=== PATIENT | female | born 1980 | race Caucasian/White ===

== ENCOUNTER → 2018-04-15 | Outpatient (CLI) | payer OTHER ==
[~2018-04-15] MED LIST: BACTRIM 400 MG-1 TAB PO; BENADRYL25 M1 PO; CELEXA 20MG20 MG/TAB PO; CITALOPRAM40 MG PO; NAPROXEN 3375 MG/TAB PO; PRILOSEC 20MG20 MG PO; ZANTAC 150MG T150 MG PO; ZYRTEC5 MG PO
== END ==
LOC: MC.RAD 12:58
DX: N63.20 Unspecified lump in the left breast, unspecified quadrant (principal)
CPT/HCPCS: G0279

== ENCOUNTER 2018-04-22 14:28 | Emergency (ER) | payer SELFPAY ==
[~2018-04-22] VITALS: Ht 154.9 cm; Wt 78.2 kg
[2018-04-22 14:36] VITALS: TEMP 97
[2018-04-22 14:43] LABS: COLLECTION METHOD CLEAN CATCH
[2018-04-22 14:56] LABS: MUCOUS Present /lpf; PH 5 (5-8); SQUAMOUS EPITHELIAL 0-2 /hpf; URINE APPEARANCE Clear; URINE BACTERIA Rare /hpf; URINE BILIRUBIN Negative (NEGATIVE); URINE BLOOD 1+ (NEGATIVE); URINE COLOR Straw; URINE GLUCOSE Negative (NEGATIVE); URINE KETONE Negative (NEGATIVE); URINE LEUKOCYTE ESTERASE Negative (NEGATIVE); URINE NITRATE Negative (NEGATIVE); URINE PROTEIN(semi-quant) Negative (NEGATIVE); URINE RBC 0-2 /hpf; URINE UROBILINOGEN Negative (NEGATIVE)
[2018-04-22 14:59] LABS: BASO % 0.7 % (0.0-2.0); EOS # 0.1 (0.0-0.7); EOS % 2.5 % (0-4.0); GRAN # 2.7 (1.4-6.5); GRAN % 61.6 % (42.2-75.2); HEMATOCRIT 40.5 % (37.0-47.0); HEMOGLOBIN 13.7 g/dl (12.5-16.0); LYMPH # 1.2 (1.2-3.4); LYMPH % 26.9 % (20.0-51.0); MEAN CELL VOLUME 88 fl (80.0-100.0); MEAN CORPUSCULAR HEMOGLOBIN 30 pg (27.0-31.0); MEAN CORPUSCULAR HGB CONC 34 g/dl (33.0-37.0); MEAN PLATELET VOLUME 9.9 fl (7.4-10.4); MONO # 0.4 (0.1-0.6); MONO % 8.1 % (1.7-9.3); PLATELET COUNT 276 K/mm3 (130-400); RED BLOOD COUNT 4.63 M/mm3 (4.10-5.30); REDCELL DISTRIBUTION WIDTH-CV 13.2 % (11.5-14.5)
[2018-04-22 15:06] LABS: ALANINE AMINOTRANSFERASE 45 U/L (9-52); ALBUMIN 4.2 gm/dL (3.5-5.0); ALKALINE PHOSPHATASE 76 U/L (50-136); ANION GAP 11 mmol/L (7-16); AST,SGOT 37 U/L (15-37); BILIRUBIN,TOTAL 0.4 mg/dL (0.0-1.0); BLOOD UREA NITROGEN 8 mg/dL (7-17); CALCIUM 9.3 mg/dL (8.4-10.2); CARBON DIOXIDE 24 mmol/L (22-30); CHLORIDE 101 mmol/L (98-107); CREATININE, serum 0.75 mg/dL (0.52-1.25); GLUCOSE 112 mg/dL (74-106); POTASSIUM 3.9 mmol/L (3.4-5.0); SODIUM 137 mmol/L (137-145); TOTAL PROTEIN 7.9 gm/dL (6.4-8.2)
[2018-04-22 15:12] LABS: ACETAMINOPHEN < 10 ug/mL (10-30); ALCOHOL(ethanol),MEDICAL < 10 mg/dL; SALICYLATE < 1.0 mg/dL
[2018-04-22 15:13] LABS: TRICYCLIC ANTIDEPRESS URINE NEGATIVE
[2018-04-22 18:40] VITALS: BP 1118/84; PULSE 80
== END 2018-04-22 18:42 | disposition home or self-care (01) ==
LOC: COL.ER 14:28
PROVIDERS: Emergency Medicine
DX: T42.4X2A Poisoning by benzodiazepines, intentional self-harm, initial encounter (principal); F41.9 Anxiety disorder, unspecified; F32.9 Major depressive disorder, single episode, unspecified; F17.210 Nicotine dependence, cigarettes, uncomplicated

== ENCOUNTER 2018-04-25 12:08 | Emergency (ER) | payer SELFPAY ==
[~2018-04-25] VITALS: Ht 152.4 cm; Wt 79.5 kg
[2018-04-25 12:10] VITALS: BP 138/96; TEMP 98
[2018-04-25 13:06] LABS: BASO % 0.5 % (0.0-2.0); EOS # 0.1 (0.0-0.7); EOS % 3.4 % (0-4.0); GRAN % 53.6 % (42.2-75.2); HEMATOCRIT 40.6 % (37.0-47.0); HEMOGLOBIN 13.6 g/dl (12.5-16.0); LYMPH # 1.3 (1.2-3.4); LYMPH % 32.8 % (20.0-51.0); MEAN CELL VOLUME 88 fl (80.0-100.0); MEAN CORPUSCULAR HEMOGLOBIN 30 pg (27.0-31.0); MEAN CORPUSCULAR HGB CONC 34 g/dl (33.0-37.0); MEAN PLATELET VOLUME 10.1 fl (7.4-10.4); MONO # 0.4 (0.1-0.6); MONO % 9.4 % (1.7-9.3); PLATELET COUNT 266 K/mm3 (130-400); REDCELL DISTRIBUTION WIDTH-CV 13.2 % (11.5-14.5)
[2018-04-25 13:18] LABS: ACETAMINOPHEN < 10 ug/mL (10-30); ALANINE AMINOTRANSFERASE 43 U/L (9-52); ALBUMIN 4.3 gm/dL (3.5-5.0); ALCOHOL(ethanol),MEDICAL < 10 mg/dL; ALKALINE PHOSPHATASE 71 U/L (50-136); ANION GAP 10 mmol/L (7-16); AST,SGOT 23 U/L (15-37); BILIRUBIN,TOTAL 0.3 mg/dL (0.0-1.0); BLOOD UREA NITROGEN 6 mg/dL (7-17); CALCIUM 8.7 mg/dL (8.4-10.2); CARBON DIOXIDE 25 mmol/L (22-30); CHLORIDE 103 mmol/L (98-107); CREATININE, serum 0.76 mg/dL (0.52-1.25); GLUCOSE 107 mg/dL (74-106); POTASSIUM 3.8 mmol/L (3.4-5.0); SALICYLATE < 1.0 mg/dL; SODIUM 137 mmol/L (137-145); TOTAL PROTEIN 7.9 gm/dL (6.4-8.2)
[2018-04-25 13:57] LABS: TRICYCLIC ANTIDEPRESS URINE NEGATIVE
[2018-04-25 14:55] VITALS: PULSE 90
[2018-04-25] MEDS ORDERED: XANAX 0.5MG0.5 MG PO (15:00)
== END 2018-04-25 15:01 ==
LOC: COL.ER 12:08
PROVIDERS: Emergency Medicine
DX: R45.851 Suicidal ideations (principal); F17.210 Nicotine dependence, cigarettes, uncomplicated

== ENCOUNTER → 2019-01-02 | Outpatient (CLI) | payer SELFPAY ==
[~2019-01-02] MED LIST changes: +XANAX 0.5MG0.5 MG PO
[2019-01-02 22:10] LABS: FOLLICLE STIMULATING HORMONE 9.7 mIU/mL (()); LUTENIZING HORMONE 3.1 mIU/mL (())
== END ==
LOC: COL.LAB 10:40
DX: N95.1 Menopausal and female climacteric states (principal)

== ENCOUNTER 2019-03-16 09:38 | Emergency (ER) | payer SELFPAY ==
[~2019-03-16] VITALS: Ht 154.9 cm; Wt 81.8 kg
[2019-03-16 09:43] VITALS: TEMP 98
[2019-03-16 10:17] LABS: BASO % 0.3 % (0.0-2.0); EOS # 0.1 (0.0-0.7); EOS % 1.9 % (0-4.0); GRAN % 79.9 % (42.2-75.2); HEMATOCRIT 41.3 % (37.0-47.0); HEMOGLOBIN 13.9 g/dl (12.5-16.0); LYMPH # 0.6 (1.2-3.4); MEAN CELL VOLUME 88 fl (80.0-100.0); MEAN CORPUSCULAR HEMOGLOBIN 30 pg (27.0-31.0); MEAN CORPUSCULAR HGB CONC 34 g/dl (33.0-37.0); MEAN PLATELET VOLUME 9.9 fl (7.4-10.4); MONO # 0.5 (0.1-0.6); MONO % 7.7 % (1.7-9.3); PLATELET COUNT 235 K/mm3 (130-400); RED BLOOD COUNT 4.69 M/mm3 (4.10-5.30); REDCELL DISTRIBUTION WIDTH-CV 14.4 % (11.5-14.5)
[2019-03-16 10:33] LABS: ALANINE AMINOTRANSFERASE 9 U/L (9-52); ALBUMIN 4.2 gm/dL (3.5-5.0); ALKALINE PHOSPHATASE 84 U/L (50-136); ANION GAP 10 mmol/L (7-16); AST,SGOT 25 U/L (15-37); BILIRUBIN,TOTAL 0.5 mg/dL (0.0-1.0); BLOOD UREA NITROGEN 14 mg/dL (7-17); C-REACTIVE PROTEIN 1.7 mg/dL (0.0-0.9); CALCIUM 8.9 mg/dL (8.4-10.2); CARBON DIOXIDE 25 mmol/L (22-30); CHLORIDE 102 mmol/L (98-107); CREATININE, serum 0.78 (0.52-1.25); GLUCOSE 109 mg/dL (74-106); LIPASE 21 U/L (23-300); POTASSIUM 4.1 mmol/L (3.4-5.0); SODIUM 137 mmol/L (137-145); TOTAL PROTEIN 7.5 gm/dL (6.4-8.2)
[2019-03-16 10:44] LABS: TROPONIN-I < 0.012 ng/mL (0.000-0.035)
[2019-03-16] MEDS ORDERED: MEDROL 4MG DOSPA4 MG PO (11:54)
[2019-03-16 12:32] VITALS: BP 104/76; PULSE 80
== END 2019-03-16 12:34 | disposition home or self-care (01) ==
LOC: COL.ER 09:38
PROVIDERS: Emergency Medicine
DX: M26.602 Left temporomandibular joint disorder, unspecified (principal); F41.9 Anxiety disorder, unspecified; K21.9 Gastro-esophageal reflux disease without esophagitis

== ENCOUNTER → 2020-12-12 | Outpatient (CLI) | payer OTHER ==
[~2020-12-12] MED LIST changes: +MEDROL 4MG DOSPA4 MG PO
== END ==
LOC: MC.RAD 13:44
DX: Z12.31 Encounter for screening mammogram for malignant neoplasm of breast (principal)

== ENCOUNTER → 2021-02-27 | Outpatient (CLI) | payer SELFPAY | LOC: COL.RAD 02-17 09:00 | DX: R10.2 Pelvic and perineal pain (principal) ==